=== PATIENT | male | born 1985 | race American Indian/Alaskan Native ===

== ENCOUNTER 2017-01-24 10:51 | Outpatient (CLI) | payer BC ==
--- NOTE | 2017-01-24 11:54 | Cat Scan Report ---
CT scan of abdomen and pelvis without IV contrast: History: Hydronephrosis. Findings: Normal lung bases. No pleural pericardial effusion. Normal liver spleen pancreas. Contracted gallbladder. Normal adrenals. There is dilatation noted of the right ureter due to calculus measuring 3 mm in diameter at distal right ureter. Calculus is seen adjacent to the urinary bladder. Left kidney and collecting system appears normal. Normal bladder. No free intraperitoneal fluid. No evidence of adenopathy. Gaseous colon with stool in colon. No evidence of appendicitis or diverticulitis. Impression: 2 mm distal right ureteral calculus with hydroureter proximally.
== END 2017-01-24 10:52 | disposition home or self-care (01) ==
LOC: CT 10:51
PROVIDERS: ATTEND Urology
DX: N13.2 Hydronephrosis with renal and ureteral calculous obstruction (principal); N23 Unspecified renal colic; K82.8 Other specified diseases of gallbladder
CPT/HCPCS: 74176